=== PATIENT | male | born 1980 ===

== ENCOUNTER 2023-01-14 08:09 | Emergency (ER) | payer MEDICAID ==
[~2023-01-14] VITALS: Ht 172.7 cm; Wt 82.0 kg
[2023-01-14 08:14] VITALS: BP 153/85
[2023-01-14] MEDS ORDERED: BACITRACIN ZINC OINT UDPKT TOP ONE (10:45)
[2023-01-14] MEDS ORDERED: AMOXICILLIN/POTASSIUM CLAVULANATE 875/125MG TAB PO ONE (10:45)
[2023-01-14] MEDS ORDERED: IBUPROFEN 600MG TABLET PO ONE (10:45)
[2023-01-14] MEDS ORDERED: TETANUS, DIPHTHERIA, PERTUSSIS VAC/PF 0.5ML (>10YR OLD) IM ONE (10:45)
== END 2023-01-14 11:57 | disposition left against medical advice (07) ==
LOC: ER 08:09
DX: S60.470A Other superficial bite of right index finger, initial encounter (principal); Y04.1XXA Assault by human bite, initial encounter; Y93.89 Activity, other specified; Y92.89 Other specified places as the place of occurrence of the external cause
CPT/HCPCS: 99281; Z7610